=== PATIENT | female | born 1980 | race Caucasian/White ===

== ENCOUNTER → 2018-02-15 08:45 | Outpatient (CLI) | payer OTHER, SELFPAY ==
[2018-02-15 10:20] LABS: Glucose 80 mg/dL (70-100)
[2018-02-22 14:26] LABS: AFP, Serum 34.6 ng/mL; Cigarette Smoker No; Donated Egg NOT GIVEN; Donor Egg Age NOT GIVEN; Estriol, Free 0.95 ng/mL; Inhibin A, Dimeric 127 pg/mL; Maternal Ethnicity NOT GIVEN; Maternal Weight 181 lbs; Number of Fetuses NOT GIVEN; Previous Pregnancy Down Syndro NOT GIVEN; hCG, MoM 0.98; hCG, Serum 24.8 IU/mL
== END ==
PROVIDERS: Visit Provider Specialist
DX: Z36.9 Encounter for antenatal screening, unspecified (principal); Z3A.17 17 weeks gestation of pregnancy
CPT/HCPCS: 36415; 82105; 82677; 82947; 84702; 86336

== ENCOUNTER → 2018-03-09 14:56 | Outpatient (CLI) | payer OTHER, SELFPAY ==
--- NOTE | 2018-03-09 14:58 | DI.US.S_ITS ---
PROCEDURE: US OB >= 14 WEEKS FETUS INDICATIONS: 20 WEEK ANATOMIC SURVEY OUTSIDE/PRIOR DATING DATA: Last menstrual period (LMP): 10/18/17. LMP-based estimated date of delivery (CARLOS): 07/25/18. First dating scan (date and location): 02/15/18. Estimated date of delivery (CARLOS) from first dating scan: 07/25/18. TECHNIQUE: Real-time scanning was performed of the fetus, with image documentation and biometric measurements. COMPARISON: [facility], , OB >= 14 WEEKS FETUS, 02/15/2018, 8:30. FINDINGS: General: A single living intrauterine gestation is present. Presentation: Breech. Placenta: Placental position is anterior, without previa. Lower placental edge 2 cm or less from internal cervical os qualifies as low lying placenta. Amniotic fluid index: 14.2 cm, normal range is 5-24 cm. heart rate: 144 beats per minute. Maternal cervical canal: 4.1 cm long. Normal lower limit is 2.5 cm. biometrics: Biparietal diameter: 4.8 cm 20 weeks 3 days Head circumference: 17.9 cm 20 weeks 2 days Abdominal circumference: 15.1 cm 20 weeks 2 days Femur length: 3.4 cm 20 weeks 4 days Estimated gestational age from initial scan: 20 weeks 2 days Composite gestational age from present scan: 20 weeks 3 days Estimated weight and percentile: 351 g 51st percentile Measurement variability for biometric dating: +/- 7 days from 14 weeks to 15 weeks 6 days gestation, +/- 10 days from 16 weeks to 21 weeks 6 days gestation, +/- 2 weeks from 22 weeks to 27 weeks 6 days gestation, +/- 3 weeks for 28 weeks gestation or later. weight reference: 4500 g or EFW >90/95% is considered macrosomia or large for gestational age. EFW <10% is small for gestational age. EFW 5% or less is considered intra-uterine growth restriction. Anatomic survey: Neuro: Ventricles are non-dilated at less than 10 mm. Cisterna magna is normal at 3-11 mm. Cerebellum is normal in size and morphology. Nuchal skin fold: Normal at less than 6 mm between 14-21 weeks gestational age. Face: Nose and lips, facial profile are normal. Spine: No evidence for spina bifida. Heart: 4-chambered heart is present, with normal ventricular outflow tracts. Diaphragm: Diaphragm is intact. Stomach: Left-sided stomach is present. Kidneys: No hydronephrosis. Normal is less than 5 mm in 2nd trimester, less than 7 mm in 3rd trimester. Cord: 3-vessel cord has orthotopic insertion. Bladder: Normal in size. Extremities: All 4 extremities identified. Miscellaneous: Mild right maternal hydronephrosis. IMPRESSION: 1. Single live intrauterine with ultrasound gestational age of 20 weeks 3 days compared to 20 weeks 2 days on initial ultrasound. Ultrasound CARLOS is unchanged in 07/25/18. 2. Anatomy is within normal limits. Dictated by: Jyoti Valles M.D. on 03/09/2018 at 17:16 Approved by: Jyoti Valles M.D. on 03/09/2018 at 17:18
== END ==
PROVIDERS: Visit Provider Specialist
DX: Z36.89 Encounter for other specified antenatal screening (principal); Z3A.20 20 weeks gestation of pregnancy
CPT/HCPCS: 76811

== ENCOUNTER → 2018-04-15 10:49 | Outpatient (CLI) | payer OTHER, SELFPAY ==
[2018-04-15 11:44] LABS: Hematocrit 34.1 % (36-46); Hemoglobin 11.5 g/dL (12.0-16.0)
== END ==
PROVIDERS: Visit Provider Specialist
DX: Z3A.23 23 weeks gestation of pregnancy (principal)
CPT/HCPCS: 36415; 85014; 85018

== ENCOUNTER 2018-04-19 16:57 | Outpatient (CLI) | payer OTHER, SELFPAY ==
--- NOTE | 2018-04-20 06:48 | PM.OBTRLD ---
Visit Information Visit Information Date of evaluation: 04/19/18 Primary OB Provider: Magan Mares On-call OB Provider: Luz Lomeli Reason for Evaluation: Yes non-stress test non-stress test reason: decreased movement Evaluation Evaluation Baseline heart rate: 145 Variability: Average (6-10) monitor accelerations: Present monitor decelerations: Absent Category of Tracing: I (Appropriate for gestational age ) Diagnosis, Plan/Disposition Final Diagnosis (1) 26 weeks gestation of : Current Visit: No Status: Acute (2) Decreased movement: Current Visit: No Status: Acute Plan/Disposition Plan: Discharge to home Discussed movement at 26 weeks Follow up as scheduled
== END 2018-04-19 17:37 | disposition home or self-care (01) ==
LOC: OB 04-20 15:51
PROVIDERS: Visit Provider Obstetrics & Gynecology
DX: O36.8120 Decreased fetal movements, second trimester, not applicable or unspecified (principal); Z3A.26 26 weeks gestation of pregnancy
CPT/HCPCS: 59025; G0378; G0379

== ENCOUNTER → 2018-06-03 12:02 | Outpatient (CLI) | payer OTHER, SELFPAY | DX: Z23 Encounter for immunization (principal) | CPT/HCPCS: 90471; 90686 ==

== ENCOUNTER 2018-06-10 08:33 | Outpatient (CLI) | payer OTHER, SELFPAY ==
--- NOTE | 2018-06-10 09:13 | PM.OBTRLD ---
Visit Information Visit Information Date of evaluation: 06/10/18 Primary OB Provider: Ivone Tello Reason for Evaluation: Yes non-stress test non-stress test reason: diabetes Objective Labs Result Diagrams: 06/10/18 08:36 Evaluation Evaluation Baseline heart rate: 140 Variability: Moderate (11-25) monitor accelerations: Present monitor decelerations: Absent Category of Tracing: I Diagnosis, Plan/Disposition Final Diagnosis (1) Gestational diabetes: Current Visit: Yes Status: Acute (2) 33 weeks gestation of : Current Visit: Yes Status: Acute Plan/Disposition Plan: Reactive nonstress test. Patient to get weekly nonstress test for her gestational diabetes controlled with oral medication. OB Disposition: home
[2018-06-10 09:35] LABS: Hemoglobin A1C% w Est Avg Glu 5.3 % (4.0-6.0)
[2018-06-10 09:46] LABS: Glucose 125 mg/dL (70-100)
== END 2018-06-10 09:18 | disposition home or self-care (01) ==
LOC: LAB 08:34 → LABOR 09:18
PROVIDERS: Visit Provider Specialist
DX: O24.419 Gestational diabetes mellitus in pregnancy, unspecified control (principal); Z3A.33 33 weeks gestation of pregnancy
CPT/HCPCS: 36415; 59025; 82947; 83036; G0378

== ENCOUNTER 2018-06-16 10:55 | Outpatient (CLI) | payer OTHER, SELFPAY ==
--- NOTE | 2018-06-16 11:34 | P.TNLD_ITS ---
Visit Information Visit Information Date of evaluation: 06/16/18 Primary OB Provider: Ivone Tello Reason for Evaluation: Yes non-stress test non-stress test reason: diabetes Evaluation Evaluation Baseline heart rate: 125 Variability: Moderate (11-25) monitor accelerations: Present monitor decelerations: Absent Contraction Frequency (minutes): 0 Diagnosis, Plan/Disposition Final Diagnosis (1) Gestational diabetes: Current Visit: No Status: Acute (2) 34 weeks gestation of : Current Visit: No Status: Acute Plan/Disposition Plan: Reactive nonstress test, patient seen in the office today. Weekly follow- up.
== END 2018-06-16 11:40 | disposition home or self-care (01) ==
LOC: LABOR 11:04 → OB 06-17 16:53
PROVIDERS: Visit Provider Specialist
DX: O24.419 Gestational diabetes mellitus in pregnancy, unspecified control (principal); Z3A.34 34 weeks gestation of pregnancy
CPT/HCPCS: 59025; G0378; G0379

== ENCOUNTER 2018-06-21 14:57 | Outpatient (CLI) | payer OTHER, SELFPAY ==
--- NOTE | 2018-06-21 16:18 | PM.OBTRLD ---
Visit Information Visit Information Date of evaluation: 06/21/18 Reason for Evaluation: Yes non-stress test non-stress test reason: diabetes Vital Signs Vital Signs: Blood pressure 114/68, pulse of 83 Evaluation Evaluation Baseline heart rate: 130 Variability: Moderate (11-25) monitor accelerations: Present monitor decelerations: Absent Diagnosis, Plan/Disposition Final Diagnosis (1) Gestational diabetes: Current Visit: No Status: Acute (2) 35 weeks gestation of : Current Visit: Yes Status: Acute Plan/Disposition Plan: Reactive nonstress test. Follow-up in 1 week. OB Disposition: home
== END 2018-06-21 15:53 | disposition home or self-care (01) ==
LOC: LABOR 15:26 → OB 06-22 10:22
PROVIDERS: Visit Provider Specialist
DX: Z34.83 Encounter for supervision of other normal pregnancy, third trimester (principal); Z3A.35 35 weeks gestation of pregnancy
CPT/HCPCS: 59025; G0378; G0379

== ENCOUNTER → 2018-06-30 09:24 | Outpatient (CLI) | payer OTHER, SELFPAY ==
[2018-07-01 16:21] LABS: Strep Grp B PCR NEG for Grp B Strep
== END ==
PROVIDERS: Visit Provider Specialist
DX: Z3A.35 35 weeks gestation of pregnancy (principal)
CPT/HCPCS: 87653

== ENCOUNTER → 2018-06-30 09:27 | Outpatient (CLI) | payer OTHER, SELFPAY ==
--- NOTE | 2018-06-30 10:53 | PM.OBTRLD ---
Visit Information Visit Information Date of evaluation: 06/30/18 Primary OB Provider: Ivone Tello Reason for Evaluation: Yes non-stress test non-stress test reason: diabetes Exam Vital Signs (past 8 hours): Blood pressure 116/71, pulse of 80 Evaluation Evaluation Baseline heart rate: 140 Variability: Moderate (11-25) monitor accelerations: Present monitor decelerations: Absent Category of Tracing: I Diagnosis, Plan/Disposition Final Diagnosis (1) 36 weeks gestation of : Current Visit: Yes Status: Acute (2) Gestational diabetes mellitus (GDM): Current Visit: Yes Status: Acute Plan/Disposition Plan: Continue weekly OB visits and NSTs
== END | disposition home or self-care (01) ==
LOC: LABOR 09:47 → OB 15:42
PROVIDERS: Visit Provider Specialist
DX: Z34.83 Encounter for supervision of other normal pregnancy, third trimester (principal); Z3A.36 36 weeks gestation of pregnancy
CPT/HCPCS: 59025; 87653; G0378; G0379

== ENCOUNTER → 2018-07-06 15:39 | Outpatient (CLI) | payer OTHER, SELFPAY | END | disposition home or self-care (01) | LOC: LABOR 15:55 → OB 07-08 09:52 | PROVIDERS: Visit Provider Obstetrics & Gynecology | DX: Z3A.37 37 weeks gestation of pregnancy (principal); Z34.83 Encounter for supervision of other normal pregnancy, third trimester | CPT/HCPCS: 59025; G0378; G0379 ==

== ENCOUNTER 2018-07-11 22:00 | Inpatient (IN) | payer OTHER, SELFPAY ==
--- NOTE | 2018-07-11 23:11 | P.HPOB_ITS ---
OB HPI Date/Time Date of admission: 07/11/18 Date Patient Seen: 07/11/18 Time Patient Seen: 23:00 History of Present Condition Chief complaint: eval of labor : 2 Para: 1 Estimated Date of Delivery: 07/26/18 Estimated Gestational Age (weeks): 37w6d Narrative: Amita Vargas is a 37 year old at 37 weeks and 6 days presenting with SROM. She was scheduled for repeat on 07/19/18. Patient has a history of PCOS for which she was on metformin before and during her . Due to history of gestational diabetes in her first , blood sugars were monitored throughout this and all normal. Past surgical history includes section, tonsillectomy and wisdom teeth extraction. Indications Operative indications ( section): previous uterine surgery History of Present care: good care, number of visits (15) and pounds weight gain (38) Dating criteria: based on 1st trimester US only Ultrasounds: normal mid trimester US Obstetrical complications: gestational diabetes and other (bicornuate uterues) Narrative: PCOS on metformin Preadmission Labs Blood type: O (+) positive -: Antibody screen: negative, GBS status: negative, HBsAG: negative, HIV: negative and RPR/VDLR: negative -: Chlamydia screen: not detected and Gonorrhea screen: not detected -: Rubella: immune HCT: 39.1 HCAB: negative PAP: Normal Quad screen: Normal Prior (ies) History: 2016 for breech, term female Evaluation Evaluation Baseline heart rate: 130 Variability: Moderate (11-25) monitor accelerations: Present monitor decelerations: Absent Category of Tracing: I Non-invasive Membranes Rupture Test: positive Meds Home Medications Medication Instructions Recorded Confirmed Type oxymwcpbjv-sydoqegaxzvpb-oznu 1 tab PO Q4HP PRN #20 tab-cap 02/06/17 Rx blood sugar diagnostic strips #150 each 02/15/18 Rx omeprazole 20 mg capsule,delayed 20 mg PO DAILY #30 cap 04/15/18 04/15/18 Rx release Double Electric Breast Pump #1 ea 06/21/18 06/21/18 Rx metformin ER 500 mg 1,000 mg PO BID #120 tab 07/06/18 07/06/18 Rx tablet,extended release 24 hr Allergies Allergy/AdvReac Type Severity Reaction Status Date / Time oxycodone [OXYCODONE] Allergy Severe violent Unverified 12/09/17 12:34 vomiting azithromycin [AZITHROMYCIN] Allergy Intermediate stomach Unverified 12/09/17 12: 34 cramps/nausea Review of Systems Review of Systems All systems reviewed & are unremarkable except as noted in HPI and below Exam Const General: cooperative and healthy appearing HENNM Head: normal to inspection Ears: hearing grossly normal bilaterally Nose: external nose normal Mouth: oral mucosae normal Teeth and gingiva: dentition normal Eyes General: appearance normal, both eyes and all related structures Neck Neck: normal visual inspection Resp Effort & Inspection: normal respiratory effort Auscultation: clear to auscultation bilaterally Cardio Rate: regular rate Rhythm: regular rhythm Heart Sounds: no murmurs Presentation: vertex Estimated Weight (lbs): 7 Amniotic Fluid: clear Neuro General: alert, awake and oriented x3 Extrem General: normal to inspection and no pedal edema Objective Labs Result Diagrams: 07/11/18 23:35 Assessment and Plan (1) 37 weeks gestation of : Current visit: Yes Status: Acute (2) Gestational diabetes mellitus (GDM): Current visit: No Status: Acute (3) H/O section: Current visit: Yes Status: Acute 37 year old at 37 weeks and 6 days with history of prior section here with SROM. Will proceed with repeat with bilateral tubal ligation. Consent signed.
[2018-07-11 23:54] LABS: Add Manual Diff / Slide Review NO; Basophils Percent Auto 0.4 % (0-2); Eosinophils Percent Auto 0.8 % (2-4); Hematocrit 30.8 % (36-46); Hemoglobin 10.2 g/dL (12.0-16.0); Lymphocytes Percent Auto 10.7 % (25-40); Mean Corpuscular HGB Conc 33.1 % (30-36); Mean Corpuscular Hemoglobin 27.8 PG (26-34); Mean Corpuscular Volume 84.1 fL (80-100); Monocytes Percent Auto 7.3 % (3-14); Neutrophils Absolute Auto 7900 /uL (3000-5900); Neutrophils Percent Auto 80.8 % (50-75); Platelet Count 238 X10^3/uL (150-400); Red Blood Cell Count 3.67 X10^6/uL (4.0-5.2); Red Cell Distribution Width 14.2 % (11.6-14.8); White Blood Cell Count 9.7 X10^3/uL (4.5-11.0)
[2018-07-11] MEDS: CEFAZOLIN 2 GM/100 ML FROZ.PIGGY IV (23:59)
--- NOTE | 2018-07-12 | PATH_ITS ---
[facility] Accession Number: [id number] . 01 Material submitted: . PART A: SEGMENT RIGHT FALLOPIAN TUBE PART B: SEGMENT LEFT FALLOPIAN TUBE . 02 Diagnosis: A-B. Segments of Right and Left Fallopian Tubes (Sterilization Procedure): No significant pathologic change. MRV/07/14/2018 . 02 Electronically signed: . Hubert Mota MD, Pathologist NPI- [id number] . 01 Gross description: . Received two formalin-filled containers, both labeled with the patient's name: . A. In a container labeled segment right fallopian tube, the specimen consists of a 0.4 cm in diameter by 0.7 cm in length, cylindrical shaped portion of tissue. The specimen is inked blue, bisected, and totally submitted in cassette A. B. In a container labeled segment left fallopian tube, the specimen consists of a 0.4 cm in diameter by 0.7 cm in length, cylindrical shaped portion of tissue. The specimen is inked blue, bisected, and entirely submitted in cassette B. ([id number]) /FRR . 02 Microscopic: . Slides reviewed microscopic support the final diagnosis. . 02 Pathologist provided ICD-10: Z30.2 . 02 CPT . 337745, [id number] Specimen Comment: A duplicate report has been generated due to demographic updates. Performed at: 01 [facility] [address] [facility], [place], [place] [id number] MD Ashutosh James MD Phone: [phone] Performed at: 02 [facility] [address] [place], [place] [id number] MD Radha Valencia MD Phone: [phone]
--- NOTE | 2018-07-12 00:27 | SUR.OPER ---
Supine on Padded OR bed, head on pillow, safety belt at thigh, arms secured on padded arm boards at <90 degrees abduction. Bump under right buttock. Legs uncrossed with pillow under knees, gel pad to heels, tape over blanket to lower legs.
[2018-07-12] MEDS: ACETAMINOPHEN IV 1,000 MG/100 ML VIAL 400 MG IV (00:40)
--- NOTE | 2018-07-12 00:50 | SUR.OPER ---
VIABLE FEMALE INFANT DELIVERED AT 0030. CORD BLOOD AND PLACENTA TO OB WITH RN.
[2018-07-12] MEDS: LACTATED RINGERS 1,000 ML 42 ML IV (01:10)
[2018-07-12 01:21] VITALS: BP 121/48; PULSE 71; RESP 18; TEMP 36.4; O2SAT 97
[2018-07-12] MEDS: fentaNYL 100 MCG/2 ML INJ 25 MCG IV ×2 (01:24→01:31)
[2018-07-12 01:26] VITALS: BP 122/48; PULSE 70; RESP 18; O2SAT 98
--- NOTE | 2018-07-12 01:28 | PM.OP.1 ---
Operative Date/Time/Diagnoses Date of procedure: 07/12/18 Pre-op diagnosis: 38 weeks of History of section Spontaneous rupture of membranes Post-op diagnosis: same Procedure & Clinicians Procedure: Repeat low transverse section with bilateral tubal ligation Same procedure as scheduled: Yes Indications: Prior 38 weeks of Spontaneous rupture of membranes Surgeon: Rocío Leo [employer] Operations Specialist: Magan Mares Anesthesia Type: Spinal Operative Notes Findings: Live female Normal uterus, tubes and ovaries Closure Type: primary Specimen(s): other (bilateral fallopian tube sections) Implants & Drains: Applied: catheter Estimated Blood Loss (mL): 400 Procedure in detail: The patient was taken to the operating room where she was placed in the seated position. Spinal anesthesia was administered. She was then placed in the dorsal supine position with a leftward tilt. She was prepped and draped in the usual sterile fashion. A timeout was performed. After spinal analgesia was found to be adequate, a Pfannenstiel skin incision was made 2 fingerbreadths above the pubic symphysis and carried through to the underlying layer fascia. The fascia was nicked in the midline and the incision extended bilaterally with Ramirez scissors. The superior aspect of the fascial incision was grasped with a Aurora clamps, elevated, and the underlying rectus muscles dissected off sharply and bluntly. Attention was then turned to the inferior aspect of this incision which in a similar fashion was grasped with a Aurora clamps, elevated, and the underlying rectus muscles dissected off sharply and bluntly. The rectus muscles were in the midline. The peritoneum was identified, grasped between 2 hemostats, and entered sharply with the Metzenbaum scissors. This incision was extended superiorly and inferiorly with good visualization of the bladder. The bladder blade was inserted. The vesicouterine peritoneum was identified, grasped with the pickup, and entered sharply with the Metzenbaum scissors. This incision was extended bilaterally, and the bladder flap was created digitally. The bladder blade was reinserted. The lower uterine segment was incised in a transverse fashion with the scalpel. Upon entering the amniotic sac there was a small amount clear amniotic fluid. The infant's head was delivered. The remainder of the body delivered without difficulty. The cord was double clamped and cut. The was handed off to waiting RN and RT. The placenta was delivered manually. The uterus was cleared of all clots and debris. The uterine incision was repaired with #1 chromic in a running interlocking fashion and a second layer the same suture was used for an imbricating layer. Hemostasis was achieved. The tubes and ovaries were examined and were found to be normal. Dr. Mares performed a bilateral [place] tubal ligation. The gutters were cleared of all clots and debris. The parietal peritoneum was closed using 2-0 Chromic in a running fashion. The fascia was reapproximated using #1 Vicryl in a running fashion. Subcutaneous layer was copiously irrigated with warm normal saline. 5 simple interrupted sutures of 3-0 Vicryl were placed to reapproximate the subcutaneous layer. The skin was closed with 4-0 undyed Vicryl in a subcuticular fashion. Steri-Strips were placed. An Aquacel dressing was placed. The uterus was expressed of a small amount of old blood. Sponge, lap, and instrument counts were correct. The patient tolerated the procedure well, and was taken to PACU in stable condition. Complications: none Condition: stable Disposition: PACU
[2018-07-12 01:31] VITALS: BP 118/51; PULSE 67; RESP 18; O2SAT 97
[2018-07-12 01:36] VITALS: BP 123/55; PULSE 69; RESP 16; TEMP 36.4; O2SAT 98
[2018-07-12 02:40] VITALS: BP 127/68
[2018-07-12] MEDS: LACTATED RINGERS 1,000 ML 100 ML IV (03:00)
[2018-07-12] MEDS: KETOROLAC 30 MG/ML VIAL IV ×3 (06:48→18:35)
[2018-07-12] MEDS: METFORMIN XR 500 MG TABLET 1000 MG PO ×2 (09:12→21:02)
[2018-07-12] MEDS: DOCUSATE 250 MG CAPSULE PO (09:13)
[2018-07-12] MEDS: PANTOPRAZOLE 20 MG TABLET PO (09:13)
--- NOTE | 2018-07-12 15:41 | P.PNOB_ITS ---
Subjective - OB Interval history: Patient has not yet ambulated or had the Cunningham catheter removed. Patient comments: no complaints, pain well controlled, tolerating diet and flatus present baby status: doing well and nursing well Date Patient Seen: 07/12/18 Time Patient Seen: 15:00 Exam Vital Signs (past 8 hours): Oxygen Delivery Method Room Air Temperature 98.3? blood pressure 103/60 heart rate 68 Narrative Exam Narrative: General: Awake and alert, no acute distress. HEENT: NCAT, EOMI, moist oral mucosa CV: Regular rate and rhythm, no murmurs, rubs or gallops Lungs: CTAB, no wheezes, rales, or rhonchi Abdomen: Soft, nontender; bowel tones active; uterus firm 1 cm below umbilicus Extremities: Warm, trace edema bilaterally, 2+ pedal pulses bilaterally Objective Labs Result Diagrams: 07/11/18 23:35 Labs: Laboratory Results - last 24 hr 07/11/18 07/11/18 23:35 23:35 WBC 9.7 RBC 3.67 L Hgb 10.2 L Hct 30.8 L MCV 84.1 MCH 27.8 MCHC 33.1 RDW 14.2 Plt Count 238 Neut % (Auto) 80.8 H Lymph % (Auto) 10.7 L [place] % (Auto) 7.3 Eos % (Auto) 0.8 L Baso % (Auto) 0.4 Neut # (Auto) 7900 H Blood Type O Positive Antibody Screen Negative Assessment & Plan (1) 37 weeks gestation of : Status: Acute Current Visit: Yes (2) Gestational diabetes mellitus (GDM): Status: Acute Current Visit: No (3) H/O section: Status: Acute Current Visit: Yes (4) Status post section: Status: Acute Current Visit: Yes Plan day: 0 plan OB: routine care and routine postop care Time Spent With Patient Total time spent is greater than 50% in coordination of care (as documented) at patient's floor/unit and/or counseling patient: less than 15 minutes
--- NOTE | 2018-07-12 18:05 | P.HPPD_ITS ---
History History The patient was delivered by repeat section at 12:30 a.m. or in the operating room at [facility]. Rupture of membranes was spontaneous with duration of rupture membranes 3 hr 30 min. Clear fluid was found. was 8 at 1 min with 2 off for color and 9 at 5 min with 1 off for color. No resuscitation was needed. The has had stable vital signs and been afebrile. They are nursing reasonably well. No parental concerns. Mom says went well. Mom denies use of alcohol, tobacco, and illicit drugs during . Mom is a 37-year-old 2 para 1 with estimated date of confinement of July 26, 2018. Maternal laboratory information includes: Blood type: O positive, antibody screen negative Syphilis serology: Negative Rubella: Immune Group B strep screen: Negative Hepatitis-B surface antigen: Negative Gonorrhea: Negative HIV: Negative Exam - Pediatric Vital Signs Temp Pulse Resp BP Pulse Ox 97.6 F 71 18 121/48 L 97 07/12/18 01:21 07/12/18 01:21 07/12/18 01:21 07/12/18 01:21 07/12/18 01:21 weight: 6 lb 12 oz which is 3062 g. Length: 19.2 in which is 48.8 cm Head circumference: 13.25 in which is 33.7 cm Vital signs: Temperature: 98.6?. Heart rate: 124. Respiratory rate: 32. General: Patient is calm and normally responsive. Head: Normocephalic. Soft anterior fontanel. Eyes: Normal red reflex x2 Ears: Normal externally with patent canals Mouth and throat: No posterior pharyngeal defects. No obvious ankyloglossia. Nose: Patent with no discharge. Neck: No unusual masses Chest wall: Symmetrical. No retractions. Heart: Regular rate and rhythm with no murmur. Normal S2 split. Plus two femoral pulses. Lungs: Clear with normal breath sounds new Abdomen: No masses or tenderness. Bowel sounds are present. Hips: Normal range of motion bilaterally. External genitalia: Normal female Anus: Patent Back: No abnormalities noted. Hands and feet: Grossly normal. Skin: Vandiver with normal turgor. No unusual rashes or skin lesions. Objective Labs Result Diagrams: 07/11/18 23:35 Labs: Laboratory Results - last 24 hr 07/11/18 07/11/18 23:35 23:35 WBC 9.7 RBC 3.67 L Hgb 10.2 L Hct 30.8 L MCV 84.1 MCH 27.8 MCHC 33.1 RDW 14.2 Plt Count 238 Neut % (Auto) 80.8 H Lymph % (Auto) 10.[address] [place] % (Auto) 7.3 Eos % (Auto) 0.8 L Baso % (Auto) 0.4 Neut # (Auto) 7900 H Blood Type O Positive Antibody Screen Negative
[2018-07-12] MEDS: HYDROMORPHONE 2 MG TABLET PO ×2 (19:21→23:07)
[2018-07-13] MEDS: IBUPROFEN 600 MG TABLET PO ×4 (00:46→18:51)
[2018-07-13] MEDS: HYDROMORPHONE 2 MG TABLET PO ×5 (03:07→23:17)
[2018-07-13] MEDS: METFORMIN XR 500 MG TABLET 1000 MG PO ×2 (08:25→20:09)
[2018-07-13] MEDS: DOCUSATE 250 MG CAPSULE PO (08:26)
[2018-07-13] MEDS: PANTOPRAZOLE 20 MG TABLET PO (08:26)
[2018-07-13 08:38] LABS: Hematocrit 28.2 % (36-46); Hemoglobin 9.5 g/dL (12.0-16.0)
--- NOTE | 2018-07-13 11:49 | P.PNOB_ITS ---
Subjective - OB Interval history: Patient comments: pain well controlled, incisional pain, tolerating diet and flatus present [place] baby status: doing well and nursing well feeding status: exclusively breast feeding Date Patient Seen: 07/13/18 Time Patient Seen: 08:00 Exam Vital Signs (past 8 hours): Oxygen Delivery Method Room Air temperature 98.4? blood pressure 119/69 heart rate 80 respirations 16 Narrative Exam Narrative: General: Awake and alert, no acute distress. HEENT: NCAT, EOMI, moist oral mucosa CV: Regular rate and rhythm, no murmurs, rubs or gallops Lungs: CTAB, no wheezes, rales, or rhonchi Abdomen: Soft, nontender; bowel tones active; uterus firm 1 cm below umbilicus Extremities: Warm, no edema, 2+ pedal pulses bilaterally Objective Labs Result Diagrams: 07/13/18 07:55 Labs: Laboratory Results - last 24 hr 07/13/18 07:55 Hgb 9.5 L Hct 28.2 L Assessment & Plan (1) 37 weeks gestation of : Status: Acute Current Visit: Yes (2) Gestational diabetes mellitus (GDM): Status: Acute Current Visit: No (3) H/O section: Status: Acute Current Visit: Yes (4) Status post section: Status: Acute Current Visit: Yes Plan day: 1 plan OB: routine postop care Comments: Doing well. Anticipate discharge home tomorrow. Time Spent With Patient Total time spent is greater than 50% in coordination of care (as documented) at patient's floor/unit and/or counseling patient: less than 15 minutes
[2018-07-14] MEDS: IBUPROFEN 600 MG TABLET PO ×2 (02:10→08:03)
[2018-07-14] MEDS: HYDROMORPHONE 2 MG TABLET PO (06:24)
[2018-07-14] MEDS: METFORMIN XR 500 MG TABLET 1000 MG PO (08:03)
[2018-07-14] MEDS: DOCUSATE 250 MG CAPSULE PO (08:04)
--- NOTE | 2018-07-14 08:21 | P.DS_ITS ---
Discharge Providers Date of admission: 07/11/18 22:00 Consults: 07/12/18 08:22 Consult to Dispatcher Service Chief Routine Comment: Discharge provider: Rocío Leo DO Discharge Date: 07/14/18 Summary Date Patient Seen: 07/14/18 Time Patient Seen: 08:00 Hospital Course: Patient is a 37-year-old G2 now P2 status post repeat section. Patient presented the night of 07/11/18 with SROM so was taken to in the middle of the night. Patient also underwent bilateral tubal ligation at the time of the . Surgery was uncomplicated with delivery of a vigorous female . course also unremarkable. Pain was well controlled with Dilaudid due to an oxycodone allergy. going well. Patient ambulating, eating and voiding without difficulty. Patient requested Tylenol with codeine on discharge rather than Dilaudid as this is what she used with her first . Patient will follow up in clinic in 1 week for a wound check. Counseled to call for fevers, severe pain or bleeding through more than a pad an hour. Exam Temperature 98.7? blood pressure 107/68 heart rate 72 respirations 16 General: Awake and alert, no acute distress. HEENT: NCAT, EOMI, moist oral mucosa CV: Regular rate and rhythm, no murmurs, rubs or gallops Lungs: CTAB, no wheezes, rales, or rhonchi Abdomen: Aquacel dressing in place with minimal drainage. Abdomen is doft, nontender; bowel tones active; uterus firm 1 cm below umbilicus Extremities: Warm, trace edema, 2+ pedal pulses bilaterally Peripartum Data Infant Delivery Method: Section complications: none Discharge Diagnosis (1) 37 weeks gestation of : Status: Acute (2) Gestational diabetes mellitus (GDM): Status: Acute (3) H/O section: Status: Acute (4) Status post section: Status: Acute Status at Discharge Functional status at discharge: independent ambulation Overall status at discharge: patient is progressing back to baseline Time Spent with Patient Total time spent providing and/or coordinating discharge services: Less than 30 minutes Objective Labs Result Diagrams: 07/13/18 07:55 Labs: Laboratory Results - last 24 hr 07/13/18 07:55 Hgb 9.5 L Hct 28.2 L Discharge Plan Discharge Plan Patient Disposition: Home Discharge Med Rec/Prescriptions Prescriptions: New acetaminophen-codeine 300-30 mg Tablet 1 tab PO Q4HR PRN (Reason: Moderate Pain) Qty: 20 RF: 0 ibuprofen 600 mg Tablet 600 mg PO Q6HR PRN (Reason: As Needed For Fever/Mild Pain) Qty: 30 RF: 0 Continue metformin [Glucophage XR] 500 mg tablet extended release 24 hr 1,000 mg PO BID Qty: 120 RF: 3 omeprazole 20 mg capsule,delayed release(DR/EC) 20 mg PO DAILY Qty: 30 RF: 2 No Action blood sugar diagnostic [FreeStyle Lite Strips] strip .ROUTE .MEDSUPPLY Qty: 150 RF: 12 Double Electric Breast Pump Qty: 1 RF: 0 Follow up/Referrals: Rocío Leo DO [Physician] - 1 Week (Thursday 07/19 for wound check @) Visit Report/Discharge Packet Stand Alone Forms: Discharge: Care Visit Report Forms: Stroke Signs & Symptoms Discharge Data Attending Provider: Rocío Leo Admit Date/Time: 07/11/18 22:00 Discharges patient from system. Discharge Date/Time: 07/14/18 11:45
[2018-07-14] MEDS: CODEINE/ACETAMINOPHEN 30/300 TABLET 1 TAB PO (09:08)
[2018-07-14 09:27] VITALS: BP 119/72; PULSE 77; RESP 16; TEMP 37
== END 2018-07-14 11:45 | disposition home or self-care (01) | DRG 785 ==
PROVIDERS: Admitting Provider Family Medicine; Visit Provider Family Medicine
PROC: 10D00Z1 Extraction of Products of Conception, Low, Open Approach (ICD-10-PCS; CPT 59514; principal; 2018-07-12 00:25)
DX: O34.03 Maternal care for unspecified congenital malformation of uterus, third trimester (principal); Q51.3 Bicornate uterus; Z3A.37 37 weeks gestation of pregnancy; Z37.0 Single live birth; O34.219 Maternal care for unspecified type scar from previous cesarean delivery; Z30.2 Encounter for sterilization
CPT/HCPCS: 36415; 59000; 59050; 59514; 59515; 85014; 85018; 85025; 86850; 86900; 86901; 88302; G0379; J0131; J0171; J0690; J1885; J2274; J2405; J2590; J2765; J3010

== ENCOUNTER → 2018-07-21 14:01 | Outpatient (CLI) | payer OTHER, SELFPAY ==
[2018-07-21 15:04] LABS: Add Manual Diff / Slide Review NO; Basophils Percent Auto 0.7 % (0-2); Eosinophils Percent Auto 2.2 % (2-4); Hematocrit 30.3 % (36-46); Lymphocytes Percent Auto 11.9 % (25-40); Mean Corpuscular HGB Conc 32.9 % (30-36); Mean Corpuscular Hemoglobin 27.5 PG (26-34); Mean Corpuscular Volume 83.7 fL (80-100); Monocytes Percent Auto 6.6 % (3-14); Neutrophils Absolute Auto 6300 /uL (3000-5900); Neutrophils Percent Auto 78.6 % (50-75); Platelet Count 395 X10^3/uL (150-400); Red Blood Cell Count 3.62 X10^6/uL (4.0-5.2); Red Cell Distribution Width 15.1 % (11.6-14.8); White Blood Cell Count 8.1 X10^3/uL (4.5-11.0)
[2018-07-21 15:11] LABS: BUN Creatinine Ratio 25.7 (6-22); Blood Urea Nitrogen 18 mg/dL (7-17); Calcium 9.2 mg/dL (8.4-10.2); Carbon Dioxide 27 mmol/L (22-32); Chloride 101 mmol/L (98-107); Estimated Glomerular Filt Rate > 60.0 mL/min (>60); Glucose 79 mg/dL (70-100); HEMOLYSIS < 15 (0-50); Potassium 4.8 mmol/L (3.4-5.1); Sodium 139 mmol/L (137-145)
[2018-07-21 15:36] LABS: B Type Natriuretic Peptide 77.1 (<100)
== END ==
PROVIDERS: Visit Provider Family Medicine
DX: Z98.891 History of uterine scar from previous surgery (principal)
CPT/HCPCS: 36415; 80048; 83880; 85025

== ENCOUNTER → 2018-11-13 11:28 | Outpatient (CLI) | payer OTHER, SELFPAY ==
[2018-11-13 12:25] LABS: Influenza A and B by PCR Rapid Negative (Negative)
== END ==
PROVIDERS: Visit Provider Physician Assistant
DX: R68.89 Other general symptoms and signs (principal)
CPT/HCPCS: 87400

== ENCOUNTER 2018-11-15 06:17 | Emergency (ER) | payer OTHER, SELFPAY ==
[2018-11-15 06:27] VITALS: BP 119/71; PULSE 76; RESP 18; TEMP 36.5; O2SAT 100; BMI 30.4
--- NOTE | 2018-11-15 06:30 | ED.URI ---
HPI - URI/Sore Throat General Chief Complaint: Upper Respiratory Symptoms Stated Complaint: coughing sore throat short of breath Time Seen by Provider: 11/15/18 06:30 Source: patient Mode of arrival: ambulatory Limitations: no limitations History of Present Illness HPI Narrative: Patient is a 38-year-old female presents with cough sore throat shortness of breath. 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 She was tested for influenza 2 days ago was negative. She still overall is feels terrible she has a sore throat and coughing up yellow stuff. Complaint: fever, cough and sore throat Related Data Previous Rx's Medication Instructions Recorded blood sugar diagnostic strips #150 each 02/15/18 ibuprofen 600 mg PO Q6HR PRN #30 tab 07/14/18 Double Electric Breast Pump #1 ea 09/02/18 metformin ER 500 mg 500 mg PO BID #60 tab 11/03/18 tablet,extended release 24 hr albuterol sulfate 1 puff INHALATION Q4-6H PRN #8 gram 11/15/18 Allergies Allergy/AdvReac Type Severity Reaction Status Date / Time oxycodone [OXYCODONE] Allergy Severe violent Verified 11/13/18 11:26 vomiting shellfish derived Allergy Severe Swelling Verified 11/13/18 11:26 of Lip/Tongue/Throat azithromycin [AZITHROMYCIN] Allergy Intermediate stomach Verified 11/13/18 11:26 cramps/nausea latex Allergy Intermediate Hives Verified 11/13/18 11:26 Review of Systems Review of Systems ROS Unobtainable: All systems reviewed & are unremarkable except as noted in HPI and below Constitutional Reports chills, Reports fatigue and Reports fever(s) Eyes Denies change in vision, Denies eye discharge, Denies irritation and Denies loss of vision ENT Ears, Nose, Mouth, and Throat: Reports as per HPI Cardiovascular Denies chest pain, Denies irregular heart rhythm, Denies lightheadedness, Denies palpitations and Denies orthopnea Respiratory Reports chest congestion, Reports cough and Reports excessive phlegm production Gastrointestinal Gastrointestinal: Denies abdominal pain, Denies change in bowel habits, Denies diarrhea, Denies nausea and Denies vomiting Genitourinary Denies hematuria, Denies flank pain, Denies urinary incontinence and Denies urinary urgency Musculoskeletal Denies back pain, Denies muscle weakness, Denies numbness and Denies tingling Integumentary/Breasts Denies pruritus, Denies erythema, Denies rash and Denies wounds Neurologic Denies loss of vision, Denies numbness and Denies tingling Endocrine Reports fatigue and Denies palpitations PFSH Medical History Gestational diabetes (Acute) Surgical History H/O section (Resolved) Social History Smoking Status: Former smoker Social History Smoking Status: Former smoker Exam Initial Vital Signs Initial Vital Signs: Vital Signs Temperature 97.7 F 11/15/18 06:27 Pulse Rate 76 11/15/18 06:27 Respiratory Rate 18 11/15/18 06:27 Blood Pressure 119/71 11/15/18 06:27 Pulse Oximetry 100 11/15/18 06:27 GENERAL: Well-appearing, well-nourished and in no acute distress. HEENT: Head atraumatic,EOMI, pupils reactive, face symmetric, moist mucous membranes PHARYNX: No erythema, no tonsillar exudate, no cervical lymphadenopathy CARDIOVASCULAR: Regular rate and rhythm without murmurs, rubs or gallops. RESPIRATORY: Breath sounds equal bilaterally, no wheezes rales or rhonchi. ABDOMEN: Soft, nontender. Normoactive bowel sounds all 4 quadrants. No guarding or rebound. EXTREMITIES: Normal range of motion, no clubbing or edema. Neurovascularly intact NEUROLOGICAL: Alert and oriented x4.Normal gait and speech. SKIN: Warm, dry, no laceration, no petechiae, no rashes or lesions. Course Orders Ordered: ED Orders 11/15/18 06:34 XR chest 2V Stat Influenza A and B by PCR Rapid Stat Vital Signs - 8 hr 11/15/18 06:27 Temperature 97.7 F Pulse Rate 76 Respiratory Rate 18 Blood Pressure 119/71 Pulse Oximetry 100 MDM - URI/Sore Throat Lab Data Attestation: I reviewed the patient's lab results. Lab Results 11/15/18 Range/Units 06:34 Influenza A & B (PCR) Negative (Negative) Imaging Data Chest x-ray: Attestation: I personally reviewed and interpreted this imaging study as follows: My impression: NO ACUTE CARDIOPULMONARY MDM Narrative Medical decision making narrative: Patient is afebrile appears nontoxic influenza negative chest x-ray negative. Likely upper respiratory infection Discharge Plan Departure Patient Disposition: Home Clinical Impression: Upper respiratory infection Qualifiers: URI type: unspecified URI Qualified Code(s): J06.9 - Acute upper respiratory infection, unspecified Instructions: DI for Viral Upper Respiratory Infection -- Adult Activity Restrictions/Additional Instructions: *You have been diagnosed with upper respiratory infection *What to do: At this time no indication for antibiotics influenza is negative x-ray clear *Continue to take medications as directed Albuterol 1-2 puffs every 4 hr if needed for coughing or shortness of breath *Follow up with your primary care provider in 2-3 days *Return to ER if you should have increasing shortness of breath, cough or any new, worsening or concerning symptoms Prescriptions: New albuterol sulfate 90 mcg/actuation HFA aerosol inhaler 1 puff INHALATION Q4-6H PRN (Reason: shortness of breath or wheezing) Qty: 8 RF: 0 No Action blood sugar diagnostic [FreeStyle Lite Strips] strip .ROUTE .MEDSUPPLY Qty: 150 RF: 12 Double Electric Breast Pump Qty: 1 RF: 0 metformin [Glucophage XR] 500 mg tablet extended release 24 hr 500 mg PO BID Qty: 60 RF: 5 ibuprofen 600 mg Tablet 600 mg PO Q6HR PRN (Reason: As Needed For Fever/Mild Pain) Qty: 30 RF: 0 Referrals: Rocío Leo DO [Physician] - Stand Alone Forms: Work Release Note, Work/School Release
--- NOTE | 2018-11-15 06:34 | DI.RAD.S_ITS ---
PROCEDURE: XR CHEST 2V INDICATIONS: cough short of breath TECHNIQUE: 2 views of the chest were acquired. COMPARISON: None. FINDINGS: Surgical changes and devices: None. Lungs and pleura: Lungs are clear. No pleural effusions or pneumothorax. Mediastinum: Mediastinal contours are normal. Heart size is normal. Bones and chest wall: No suspicious bony abnormalities. Soft tissues appear unremarkable. IMPRESSION: No acute cardiopulmonary disease. Dictated by: No Wood M.D. on 11/15/2018 at 8:15 Approved by: No Wood M.D. on 11/15/2018 at 8:15
[2018-11-15 06:56] LABS: Influenza A and B by PCR Rapid Negative (Negative)
[2018-11-15 07:26] VITALS: BP 102/64; PULSE 78; RESP 18; O2SAT 99
== END 2018-11-15 07:27 | disposition home or self-care (01) ==
PROVIDERS: Emergency Provider Emergency Medicine
DX: J06.9 Acute upper respiratory infection, unspecified (principal)
CPT/HCPCS: 71046; 87400; 99282; 99284

== ENCOUNTER → 2019-03-21 13:45 | Outpatient (CLI) | payer OTHER, SELFPAY ==
--- NOTE | 2019-04-01 16:08 | PM.PFT.1 ---
Pulmonary Function Test Referral & Results Date Patient Seen: 03/21/19 Requesting provider: Fozia Brenner Results: The spirometry demonstrates an FVC of 3.73 L which is 93% of predicted. The FEV1 was measured at 2.95 L which is 90% of predicted. The FEV1/FVC ratio was 79 which is 95% of predicted. Following the administration of bronchodilator there was in a% improvement in FEV1 and a 40% improvement in FEF 25-75%. Lung volumes show an SVC of 3.75 L which is 100% of predicted. The diffusing capacity was measured at 35.16 which is 130% Of predicted. The maximum voluntary ventilation was normal Interpretation: This study demonstrates very mild obstructive lung disease with an elevated DLCO suggesting asthma as a likely diagnosis. There is minimal evidence of benefit following bronchodilator administration, but some evidence of benefit is present. Clinical correlation suggested
== END ==
PROVIDERS: PCP Physician Assistant Medical; Visit Provider Physician Assistant Medical
DX: R06.00 Dyspnea, unspecified (principal)
CPT/HCPCS: 94060; 94726; 94729

== ENCOUNTER 2019-06-01 13:10 | Emergency (ER) | payer OTHER, SELFPAY ==
[2019-06-01 13:26] VITALS: BP 122/82; PULSE 70; RESP 14; TEMP 36.7; O2SAT 99; BMI 29.0
--- NOTE | 2019-06-01 18:00 | DI.CT.S_ITS ---
PROCEDURE: CT HEAD/BRAIN WO CON INDICATIONS: vision changes, headaches several months TECHNIQUE: Noncontrast 4.5 mm thick angled axial sections acquired from the foramen magnum to the vertex, with coronal and sagittal reformats. For radiation dose reduction, the following was used: automated exposure control, adjustment of mA and/or kV according to patient size. COMPARISON: None. FINDINGS: Image quality: Excellent. CSF spaces: Basal cisterns are patent. No extra-axial fluid collections. Ventricles are normal in size and shape. Brain: No midline shift. No intracranial masses or hemorrhage. Marks-white matter interface is normal. Skull and face: Calvarium and visualized facial bones are intact, without suspicious lesions. Sinuses: Visualized sinuses and mastoids are clear. IMPRESSION: No acute intracranial process. Dictated by: Anthony Simpson M.D. on 06/01/2019 at 19:12 Approved by: Anthony Simpson M.D. on 06/01/2019 at 19:13
--- NOTE | 2019-06-01 18:02 | ED_ITS ---
HPI - Headache General Chief Complaint: Headache Stated Complaint: headaches and vision changes Time Seen by Provider: 06/01/19 18:00 Source: patient Mode of arrival: Ambulatory Limitations: no limitations History of Present Illness HPI Narrative: This is a 38-year-old female comes in with complaint of headaches and vision changes. Patient states that they had sort of these different sort of changes to their vision which are sort of like flashing lights. The been going on for several months headaches are usually associated with it. Not always severe. Sometimes some nausea but no vomiting. Patient has not had trauma. Patient has seen an manager scientific was evaluated, they did not find any anatomical changes discuss possibly getting imaging if patient had worsening symptoms. She states that it has been worsening increasing in frequency as well as intensity she has been referred to another type of manager scientific but has not actually had this referral completed. She denies any loss of vision, denies any weakness, numbness, tingling, facial droop or difficulty with speech no vomiting. No chest pain or shortness of breath. No new issues with bowel movements or urination. Patient does take metformin for PCOS and Lexapro for the last several months. Denies any other major medical issues. Related Data Home Medications Medication Instructions Recorded Confirmed escitalopram oxalate 10 mg PO DAILY 06/01/19 06/01/19 Previous Rx's Medication Instructions Recorded blood sugar diagnostic #150 each 02/15/18 ibuprofen 600 mg PO Q6HR PRN #30 tab 07/14/18 Double Electric Breast Pump #1 ea 09/02/18 metformin 500 mg tablet,extended 500 mg PO BID #60 tab 11/03/18 release 24 hr albuterol sulfate 1 puff INHALATION Q4-6H PRN #8 gram 11/15/18 norethindrone 1.5 mg-ethinyl 1 tab PO DAILY #84 tab 12/15/18 estradiol 30 mcg(21)/iron 75 mg(7) tablet Allergies Allergy/AdvReac Type Severity Reaction Status Date / Time oxycodone [OXYCODONE] Allergy Severe violent Verified 06/01/19 13:31 vomiting shellfish derived Allergy Severe Swelling Verified 06/01/19 13:31 of Lip/Tongue/Throat azithromycin [AZITHROMYCIN] Allergy Intermediate stomach Verified 06/01/19 13:31 cramps/nausea latex Allergy Intermediate Hives Verified 06/01/19 13:31 Review of Systems Review of Systems ROS Unobtainable: All systems reviewed & are unremarkable except as noted in HPI and below PFSH Medical History Gestational diabetes (Acute) Surgical History H/O section (Resolved) Social History Smoking Status: Former smoker Social History Smoking Status: Former smoker Exam Narrative Exam Narrative: GEN: well nourished, well appearing female, alert and oriented x 3, patient appears to be in mild distress. HEENT: Atraumatic, pupils are equal round reactive to light, extraocular movements are intact, no nystagmus, nares are clear, TMs are clear with no fluid, there is no conjunctival pallor. Throat is clear without any exudates, erythema, tonsillar enlargement or uvular deviation, no facial droop. HEART: Regular rate and rhythm without murmur, clicks, rubs. LUNGS:Lungs clear to auscultation, no wheezes, rales, crackles, chest moves symmetrically ABD:bowel sounds normal, soft, non-tender, no guarding, rebound, rigidity, no masses noted, no hepatosplenomegaly :No CVA tenderness, [male/female exam] MSCL: Non-tender, 5/5 muscle strength, full range of motion, normal gait NEURO:CN 2-12 intact, sensation normal Initial Vital Signs Initial Vital Signs: Vital Signs Temperature 98.0 F 06/01/19 13:26 Pulse Rate 70 06/01/19 13:26 Respiratory Rate 14 06/01/19 13:26 Blood Pressure 122/82 06/01/19 13:26 Pulse Oximetry 99 06/01/19 13:26 Course Orders Ordered: ED Orders 06/01/19 18:00 CT head/brain wo con Stat Basic Metabolic Panel Stat Complete Blood Count AUTO DIFF Stat Discontinued Medications Ibuprofen (Advil) 800 mg PO NOW ONE Stop: 06/01/19 18:03 Last Admin: 06/01/19 18:16 Dose: 800 mg Documented by: ELSY Vital Signs Vital signs: Vital Signs - 8 hr 06/01/19 13:26 06/01/19 20:16 Temperature 98.0 F Pulse Rate 70 60 Respiratory Rate 14 14 Blood Pressure 122/82 110/75 Pulse Oximetry 99 100 MDM - Headache Lab Data Result diagrams: 06/01/19 18:00 06/01/19 18:00 Labs: Lab Results 06/01/19 06/01/19 Range/Units 18:00 18:00 WBC 6.1 (4.5-11.0) X10^3/uL RBC 4.47 (4.0-5.2) X10^6/uL Hgb 13.3 (12.0-16.0) g/dL Hct 39.5 (36-46) % MCV 88.3 (80-100) fL MCH 29.7 (26-34) PG MCHC 33.7 (30-36) % RDW 13.9 (11.6-14.8) % Plt Count 261 (150-400) X10^3/uL Neut % (Auto) 61.6 (50-75) % Lymph % (Auto) 24.9 L (25-40) % Banner % (Auto) 6.7 (3-14) % Eos % (Auto) 4.5 H (2-4) % Baso % (Auto) 2.3 H (0-2) % Neut # (Auto) 3800 (0396-0417) /uL Lymph # (Auto) 1500 (4710-0096) /uL Banner # (Auto) 400 (0-900) /uL Eos # (Auto) 300 (0-450) /uL Baso # (Auto) 100 (0-100) /uL Sodium 138 (137-145) mmol/L Potassium 3.8 (3.4-5.1) mmol/L Chloride 101 (98-107) mmol/L Carbon Dioxide 29 (22-32) mmol/L BUN 17 (7-17) mg/dL Creatinine 0.60 (0.52-1.04) mg/dL Estimated GFR > 60.0 (>60) mL/min BUN/Creatinine Ratio 28.3 H (6-22) Glucose 96 (70-100) mg/dL Calcium 9.3 (8.4-10.2) mg/dL Point of Care Testing Test Results Negative MDM Narrative Medical decision making narrative: Patient has had new vision changes, discussed doing imaging to rule out any organic causes that could be intracranial. Basic blood work including electrolytes, renal function and blood count. If negative patient's plan is to follow with with Ophthalmology and her next referral. Patient is not having any acute neurologic changes otherwise. We discussed potentially could be ocular migraines although not a totally traditional type pattern. Ct shows no acute intracranial process, CBC and BMP show no acute findings. poc preg is negative. Discussed with patient I would recommend follow-up with the 2nd manager scientific that she has been referred to. We discussed signs and symptoms to watch for reasons to return emergently. Discharge Plan Departure Patient Disposition: Home Clinical Impression: Changes in vision, Frequent headaches Discharge Date/Time: 06/01/19 20:16 Instructions: DI for Headache Activity Restrictions/Additional Instructions: Follow-up with Ophthalmology in your referral. The find helpful you may continue take ibuprofen up to 800 mg every 8 hours as needed. You may take Tylenol up to a 1000 mg as needed. Return to the emergency department for severe or sudden changes to headaches, loss of vision, double vision or other new or concerning vision changes, persistent vomiting, new chest, shortness of breath, new weakness, sensation changes, facial droop difficulty with speech or other new or concerning symptoms. Prescriptions: No Action (DME) blood sugar diagnostic [FreeStyle Lite Strips] strip See Dose Instructions .ROUTE .MEDSUPPLY Qty: 150 RF: 12 (DME) Double Electric Breast Pump Qty: 1 RF: 0 metformin [Glucophage XR] 500 mg tablet extended release 24 hr 500 mg PO BID Qty: 60 RF: 5 Loestrin Fe 1.5/30 (28-Day) 1.5 mg-30 mcg (21)/75 mg (7) tablet 1 tab PO DAILY Qty: 84 RF: 3 ibuprofen 600 mg Tablet 600 mg PO Q6HR PRN (Reason: As Needed For Fever/Mild Pain) Qty: 30 RF: 0 albuterol sulfate 90 mcg/actuation HFA aerosol inhaler 1 puff INHALATION Q4-6H PRN (Reason: shortness of breath or wheezing) Qty: 8 RF: 0 escitalopram oxalate 10 mg tablet 10 mg PO DAILY RF: 0 Referrals: Fozia Brenner [Primary Care Provider] -
[2019-06-01 18:13] LABS: Add Manual Diff / Slide Review NO; Basophils Absolute Auto 100 /uL (0-100); Basophils Percent Auto 2.3 % (0-2); Eosinophils Absolute Auto 300 /uL (0-450); Eosinophils Percent Auto 4.5 % (2-4); Hematocrit 39.5 % (36-46); Hemoglobin 13.3 g/dL (12.0-16.0); Lymphocytes Absolute Auto 1500 /uL (1100-4500); Lymphocytes Percent Auto 24.9 % (25-40); Mean Corpuscular HGB Conc 33.7 % (30-36); Mean Corpuscular Hemoglobin 29.7 PG (26-34); Mean Corpuscular Volume 88.3 fL (80-100); Monocytes Absolute Auto 400 /uL (0-900); Monocytes Percent Auto 6.7 % (3-14); Neutrophils Absolute Auto 3800 /uL (1500-7000); Neutrophils Percent Auto 61.6 % (50-75); Platelet Count 261 X10^3/uL (150-400); Red Blood Cell Count 4.47 X10^6/uL (4.0-5.2); Red Cell Distribution Width 13.9 % (11.6-14.8); White Blood Cell Count 6.1 X10^3/uL (4.5-11.0)
[2019-06-01] MEDS: IBUPROFEN 400 MG TABLET 800 MG PO (18:16)
[2019-06-01 18:30] LABS: BUN Creatinine Ratio 28.3 (6-22); Blood Urea Nitrogen 17 mg/dL (7-17); Calcium 9.3 mg/dL (8.4-10.2); Carbon Dioxide 29 mmol/L (22-32); Chloride 101 mmol/L (98-107); Estimated Glomerular Filt Rate > 60.0 mL/min (>60); Glucose 96 mg/dL (70-100); HEMOLYSIS < 15 (0-50); Potassium 3.8 mmol/L (3.4-5.1); Sodium 138 mmol/L (137-145)
--- NOTE | 2019-06-01 19:39 | PC.NURSE ---
Resting in recliner chair. playing on cell phone. lis crackers and water provided.
[2019-06-01 20:16] VITALS: BP 110/75; PULSE 60; RESP 14; O2SAT 100
== END 2019-06-01 20:16 | disposition home or self-care (01) ==
PROVIDERS: Emergency Provider Emergency Medicine; PCP Physician Assistant Medical
DX: H53.9 Unspecified visual disturbance (principal); R51 Headache; E11.9 Type 2 diabetes mellitus without complications
CPT/HCPCS: 36415; 70450; 80048; 81025; 85025; 99282; 99284

== ENCOUNTER → 2019-06-29 10:05 | Outpatient (CLI) | payer OTHER, SELFPAY ==
[2019-06-29 12:21] LABS: Hemoglobin A1C% w Est Avg Glu 4.9 % (4.0-6.0)
[2019-06-29 12:51] LABS: TSH w/ Reflex to FT4 0.96 uIU/mL (0.47-4.68)
== END ==
PROVIDERS: PCP Physician Assistant Medical; Visit Provider Specialist
DX: O24.439 Gestational diabetes mellitus in the puerperium, unspecified control (principal); E01.0 Iodine-deficiency related diffuse (endemic) goiter
CPT/HCPCS: 36415; 83036; 84443

== ENCOUNTER 2019-08-13 11:22 | Emergency (ER) | payer OTHER, SELFPAY ==
[2019-08-13 11:30] VITALS: BP 135/94; PULSE 76; RESP 18; TEMP 36.7; O2SAT 100; BMI 29.8
--- NOTE | 2019-08-13 11:40 | ED_ITS ---
HPI - Abdominal Pain <Bridget Wolfmer, [employer] - Last Filed: 08/13/19 21:00> General Chief Complaint: Abdominal Pain Stated Complaint: possible Appendicitis Time Seen by Provider: 08/13/19 11:31 Source: family Mode of arrival: Ambulatory Limitations: no limitations History of Present Illness HPI narrative: The patient is a 38-year-old female former smoker of PCOS who presents with a chief complaint of ?the walk-in. center might have appendicitis she states that she was seen at [facility] just prior to arrival to the emergency department, who referred her to the emergency department due to right lower quadrant and left upper quadrant pain. She states that the left upper quadrant pain has been going on for the past 2 weeks, she had a slight fever at home this morning so she went to the walk-in clinic at her ? forced her to get seen? she would not here without him.She complains of nausea, no vomiting, diarrhea that started over the past few days. She denies any abdominal surgeries. States that she had an IUD replaced 2 weeks ago. She denies any chest pain or shortness of breath. She states that the pain in her left upper quadrant radiates around to her back. She denies any dysuria urgency or frequency. Related Data Home Medications Medication Instructions Recorded Confirmed bupropion HCl 150 mg 24 hr tablet, 150 mg PO QAM 08/11/19 08/11/19 extended release Previous Rx's Medication Instructions Recorded blood sugar diagnostic #150 each 02/15/18 ibuprofen 600 mg PO Q6HR PRN #30 tab 07/14/18 albuterol sulfate 1 puff INHALATION Q4-6H PRN #8 gram 11/15/18 metformin 500 mg tablet,extended 500 mg PO BID #60 tab 06/10/19 release 24 hr ondansetron 4 mg PO Q6H PRN #20 tab 08/13/19 prednisone 50 mg PO DAILY #5 tab 08/13/19 Allergies Allergy/AdvReac Type Severity Reaction Status Date / Time oxycodone [OXYCODONE] Allergy Severe violent Verified 08/13/19 11:35 vomiting shellfish derived Allergy Severe Swelling Verified 08/13/19 11:35 of Lip/Tongue/Throat azithromycin [AZITHROMYCIN] Allergy Intermediate stomach Verified 08/13/19 11:35 cramps/nausea latex Allergy Intermediate Hives Verified 08/13/19 11:35 Review of Systems <CASANDRA Foreman - Last Filed: 08/13/19 21:00> Review of Systems Narrative: GENERAL: Denies chills, fatigue, malaise, fever, sweats. HEENT: Denies sinus pain, ear pain, sore throat, difficulty swallowing, dizziness. RESPIRATORY: Denies dyspnea, cough, wheezing, hemoptysis, sputum. CARDIOVASCULAR: Denies chest pain, palpitations, orthopnea, edema, GASTROINTESTINAL: See HPI : See HPI MUSCULOSKELETAL: denies weakness, joint pain, or bony pain SKIN: Denies rash, skin lesions, or other NEUROLOGIC: Denies weakness, headache, numbness, change in speech, confusion, seizures, incoordination. PSYCHIATRIC: No concerning psychosocial issues. 12 point review of systems is negative except for those stated above Patient History <CASANDRA Foreman - Last Filed: 08/13/19 21:00> Medical History Gestational diabetes (Acute) Surgical History H/O section (Resolved) Social History Smoking Status: Former smoker Smoking Status: Former smoker alcohol intake frequency: holidays/special occasions only Substance Use Type: does not use Exam <CASANDRA Foreman - Last Filed: 08/13/19 21:00> Narrative Exam Narrative: GENERAL: This is a well-nourished, well-developed patient, in no acute distress HEAD: Atraumatic. Normocephalic. No temporal or scalp tenderness. EYES: Pupils equal round and reactive. Extraocular motions intact. No scleral icterus. No injection or drainage. ENT: Nose without bleeding, purulent drainage or septal hematoma. Throat without erythema, tonsillar hypertrophy or exudate. Uvula midline. Airway patent. NECK: Trachea midline. No JVD or lymphadenopathy. Supple, nontender, no meningeal signs. CARDIOVASCULAR: Regular rate and rhythm without murmurs, gallops, or rubs. RESPIRATORY: Clear to auscultation. Breath sounds equal bilaterally. No wheezes, rales, or rhonchi. GASTROINTESTINAL: Abdomen soft, nondistended. No palpable masses. Active bowel sounds all 4 quadrants. Pain to palpation right lower quadrant as well as left upper quadrant. Positive pain over McBurney's point. No peritoneal signs. EXTREMITIES: No clubbing, cyanosis, or edema. No joint tenderness, effusion, or edema noted. BACK: Nontender without deformity or crepitance. No flank tenderness. NEURO: AOx3. SKIN: No rash or erythema. Initial Vital Signs Initial Vital Signs: Vital Signs Temperature 98.1 F 08/13/19 11:30 Pulse Rate 76 08/13/19 11:30 Respiratory Rate 18 08/13/19 11:30 Blood Pressure 135/94 H 08/13/19 11:30 Pulse Oximetry 100 08/13/19 11:30 <Sophia Carballo MD - Last Filed: 08/14/19 17:43> Initial Vital Signs Initial Vital Signs: Vital Signs Temperature 98.1 F 08/13/19 11:30 Pulse Rate 76 08/13/19 11:30 Respiratory Rate 18 08/13/19 11:30 Blood Pressure 135/94 H 08/13/19 11:30 Pulse Oximetry 100 08/13/19 11:30 Course <CASIE Foreman-AMINA - Last Filed: 08/13/19 21:00> Orders Ordered: ED Orders 08/13/19 12:15 Amylase Stat Complete Blood Count AUTO DIFF Stat Comprehensive Metabolic Panel Stat Lipase Stat Partial Thromboplastin Time Stat Prothrombin Time INR Stat 08/13/19 12:48 US abdomen limited Stat US pelvic complete Stat 08/13/19 14:20 CT abdomen pelvis w con Stat Vital Signs Vital signs: Vital Signs - 8 hr 08/13/19 13:22 08/13/19 14:42 Pulse Rate 71 66 Respiratory Rate 16 16 Blood Pressure [Right Arm] 116/66 116/60 Pulse Oximetry 100 100 <Sophia Carballo MD - Last Filed: 08/14/19 17:43> Orders Ordered: ED Orders 08/13/19 12:15 Amylase Stat Complete Blood Count AUTO DIFF Stat Comprehensive Metabolic Panel Stat Lipase Stat Partial Thromboplastin Time Stat Prothrombin Time INR Stat 08/13/19 12:48 US abdomen limited Stat US pelvic complete Stat 08/13/19 14:20 CT abdomen pelvis w con Stat Vital Signs Vital signs: Vital Signs - 8 hr 08/13/19 13:22 08/13/19 14:42 Pulse Rate 71 66 Respiratory Rate 16 16 Blood Pressure [Right Arm] 116/66 116/60 Pulse Oximetry 100 100 MDM - Abdominal Pain <CASIE Foreman- - Last Filed: 08/13/19 21:00> Lab Data Result diagrams: 08/13/19 12:15 08/13/19 12:15 Labs: Lab Results 08/13/19 08/13/19 08/13/19 Range/Units 11:45 11:45 12:15 WBC 6.7 (4.5-11.0) X10^3/uL RBC 4.43 (4.0-5.2) X10^6/uL Hgb 13.1 (12.0-16.0) g/dL Hct 38.2 (36-46) % MCV 86.1 (80-100) fL MCH 29.6 (26-34) PG MCHC 34.4 (30-36) % RDW 13.1 (11.6-14.8) % Plt Count 242 (150-400) X10^3/uL Neut % (Auto) 70.0 (50-75) % Lymph % (Auto) 15.5 L (25-40) % [place] % (Auto) 6.5 (3-14) % Eos % (Auto) 7.0 H (2-4) % Baso % (Auto) 1.0 (0-2) % Neut # (Auto) 4700 (5928-1848) /uL Lymph # (Auto) 1000 L (7904-6365) /uL [place] # (Auto) 400 (0-900) /uL Eos # (Auto) 500 H (0-450) /uL Baso # (Auto) 100 (0-100) /uL PT (10.1-12.7) SECONDS INR (0.9-1.3) APTT (26.4-36.2) SECONDS Sodium (137-145) mmol/L Potassium (3.4-5.1) mmol/L Chloride (98-107) mmol/L Carbon Dioxide (22-32) mmol/L BUN (7-17) mg/dL Creatinine (0.52-1.04) mg/dL Estimated GFR (>60) mL/min BUN/Creatinine Ratio (6-22) Glucose (70-100) mg/dL Calcium (8.4-10.2) mg/dL Total Bilirubin (0.2-1.3) mg/dL AST (14-36) IU/L ALT (<35) IU/L Alkaline Phosphatase (38-126) U/L Total Protein (6.3-8.2) g/dL Albumin (3.5-5.0) g/dL Globulin (1.7-4.1) g/dL Albumin/Globulin Ratio (1.0-2.8) Amylase (30-110) U/L Lipase (23-300) U/L Urine RBC None seen (0-5/HPF) Urine WBC None seen (0-5/HPF) Ur Squamous Epith Cells 0-1 /hpf (0-5/HPF) Urine Bacteria Occasional (0-1) (None) Ur Culture Indicated? Specimen cultured Stl C. cayetanensis PCR Cancelled Stool Rotavirus (PCR) Cancelled Stool Adenovirus (PCR) Cancelled Stool Astrovirus (PCR) Cancelled Stool Cryptosporidium PCR Cancelled Stl E.coli Shiga Tox PCR Cancelled St Sh/Enteroin Ecoli PCR Cancelled Stool E coli O157 PCR Cancelled Stl Enterotoxigenic E PCR Cancelled Stool EPEC (PCR) Cancelled Stl E. histolytica PCR Cancelled Stool Giardia Lamblia PCR Cancelled Stool Sapovirus (PCR) Cancelled Stl P. shigelloides PCR Cancelled St Y.enterocolitica PCR Cancelled Stool Vibrio (PCR) Cancelled Stl Vibrio cholerae PCR Cancelled Stl Enteroaggr Ecoli PCR Cancelled Stl Norovirus GI/GII PCR Cancelled Campylobacter (PCR) Cancelled C. difficile Tox (PCR) Cancelled Salmonella (PCR) Cancelled 08/13/19 08/13/19 Range/Units 12:15 12:15 WBC (4.5-11.0) X10^3/uL RBC (4.0-5.2) X10^6/uL Hgb (12.0-16.0) g/dL Hct (36-46) % MCV (80-100) fL MCH (26-34) PG MCHC (30-36) % RDW (11.6-14.8) % Plt Count (150-400) X10^3/uL Neut % (Auto) (50-75) % Lymph % (Auto) (25-40) % [place] % (Auto) (3-14) % Eos % (Auto) (2-4) % Baso % (Auto) (0-2) % Neut # (Auto) (9266-2132) /uL Lymph # (Auto) (2575-0703) /uL [place] # (Auto) (0-900) /uL Eos # (Auto) (0-450) /uL Baso # (Auto) (0-100) /uL PT 10.6 (10.1-12.7) SECONDS INR 0.9 (0.9-1.3) APTT 31 (26.4-36.2) SECONDS Sodium 141 (137-145) mmol/L Potassium 3.9 (3.4-5.1) mmol/L Chloride 105 (98-107) mmol/L Carbon Dioxide 28 (22-32) mmol/L BUN 14 (7-17) mg/dL Creatinine 0.70 (0.52-1.04) mg/dL Estimated GFR > 60.0 (>60) mL/min BUN/Creatinine Ratio 20.0 (6-22) Glucose 75 (70-100) mg/dL Calcium 9.2 (8.4-10.2) mg/dL Total Bilirubin 0.4 (0.2-1.3) mg/dL AST 25 (14-36) IU/L ALT 15 (<35) IU/L Alkaline Phosphatase 62 (38-126) U/L Total Protein 6.6 (6.3-8.2) g/dL Albumin 4.1 (3.5-5.0) g/dL Globulin 2.5 (1.7-4.1) g/dL Albumin/Globulin Ratio 1.6 (1.0-2.8) Amylase 82 (30-110) U/L Lipase 114 (23-300) U/L Urine RBC (0-5/HPF) Urine WBC (0-5/HPF) Ur Squamous Epith Cells (0-5/HPF) Urine Bacteria (None) Ur Culture Indicated? Stl C. cayetanensis PCR Stool Rotavirus (PCR) Stool Adenovirus (PCR) Stool Astrovirus (PCR) Stool Cryptosporidium PCR Stl E.coli Shiga Tox PCR St Sh/Enteroin Ecoli PCR Stool E coli O157 PCR Stl Enterotoxigenic E PCR Stool EPEC (PCR) Stl E. histolytica PCR Stool Giardia Lamblia PCR Stool Sapovirus (PCR) Stl P. shigelloides PCR St Y.enterocolitica PCR Stool Vibrio (PCR) Stl Vibrio cholerae PCR Stl Enteroaggr Ecoli PCR Stl Norovirus GI/GII PCR Campylobacter (PCR) C. difficile Tox (PCR) Salmonella (PCR) Point of care testing: Point of Care Testing Test Results Negative Urine Dip Bedside Urine Glucose Negative Bedside Urine Bilirubin - Negative Bedside Urine Ketone - Negative Urine Specific [place] 1.010 Bedside Urine Occult Blood +/- Bedside Urine pH 6.5 Bedside Urine Protein - Negative Bedside Urine Urobilinogen - Negative Bedside Urine Nitrite - Negative Bedside Urine Leukocytes +/- [address] scan - abdomen: Radiologist's impression: [address] [address] [address] Scan Report Signed Patient: Amita Vargas KMR#: [id number] : 1980Acct:[id number] Age/Sex: 38 / FDate of Service: 08/13/19 Loc: ED Accession Number: [id number] Procedure: CT abdomen pelvis w con Ordering Provider: Bridget ChurchP- PROCEDURE: CT ABDOMEN PELVIS W CON INDICATIONS: luq, rlq pain TECHNIQUE: After the administration of intravenous contrast, 5 mm thick sections acquired from the diaphragm to the symphysis. 5 mm coronal and sagittal reformats were acquired. For radiation dose reduction, the following was used: automated exposure control, adjustment of mA and/or kV according to patient size. COMPARISON: [facility], PELVIC COMPLETE, 08/13/2019, 13:44. [facility], ABDOMEN LIMITED, 08/13/2019, 13:38. FINDINGS: Image quality: Excellent. ABDOMEN: Lung bases: Lung bases are clear. Heart size is normal. Solid organs: The there is a small hepatic cyst. Gallbladder appears within normal limits without calcified gallstones. Biliary system is non dilated. Pancreas enhances normally. Spleen is normal in size and enhancement. No adrenal nodules. Kidn eys demonstrate no hydronephrosis. There is a small left renal cyst. Peritoneum and bowel: There is mild gastric wall thickening although evaluation limited by incomplete distention. Small bowel loops demonstrate normal wall thickness and caliber. The appendix is normal in appearance. There is mild segmental wall thickening of the colon at the splenic flexure and involving the descending colon. There is also mild segmental thickening in the rectosigmoid colon distally. No free fluid or air. Nodes and vessels: No retroperitoneal or mesenteric adenopathy by size criteria. Aorta and inferior vena cava are normal in size. Miscellaneous: No ventral hernias. There is mild subcutaneous fat stranding within the ventral abdominal wall of indeterminate clinical significance. PELVIS: Genitourinary: IUD is demonstrated in appropriate position extending into the fundal endometrium. Bladder wall thickness is normal. There are small bilateral ovarian cysts likely representing follicular cysts. Miscellaneous: No inguinal hernias or adenopathy. Bones: No suspicious bony lesions. No vertebral body compression fractures. IMPRESSION: 1. Mild segmental wall thickening of the distal colon beginning at the splenic flexure suggestive of a mild infectious or inflammatory colitis. 2. Suggestion of mild gastric wall thickening although this may reflect incomplete distention. 3. IUD appears in appropriate position within the uterus. Dictated by: Ashutosh Dallas M.D. on 08/13/2019 at 13:48 Approved by: Ashutosh Dallas M.D. on 08/13/2019 at 13:55 pelvic us: Radiologist's impression: Amita Vargas 38 F 1980 [place] [address] Ultrasound Report Signed Patient: Amita Vargas KMR#: [id number] : 1980Acct:[id number] Age/Sex: 38 / FDate of Service: 08/13/19 Loc: ED Accession Number: [id number] Procedure: US pelvic complete Ordering Provider: Bridget ChurchBC PROCEDURE: US PELVIC COMPLETE INDICATIONS: rlq pain TECHNIQUE: Real-time scanning was performed of the pelvic organs, with image documentation. Additional endovaginal scanning was necessary due to incomplete visualization of the adnexal and endometrial structures by transabdominal scanning. COMPARISON: [facility], , US PELVIC COMPLETE, 08/27/2018, 8:25. FINDINGS: Transabdominal scanning: Limited scanning through the kidneys shows no hydronephrosis. There is a small amount of free fluid in the pelvis which appears within physiologic limits. Endovaginal scanning: Uterus: Uterus is normal in size at 9.6 x 3.0 x 6.1 cm. The endometrium measures 1.0 cm in combined thickness. There is a section scar within the lower uterine segment. There is an IUD within the endometrium. This appears to partially extend into the section scar. Ovaries: The right ovary measures 3.6 x 1.9 x 2.2 cm and the left ovary measures 3.8 x 2.0 x 2.4 cm. There are bilateral ovarian follicles. There is a simple cyst in the right ovary measuring up to 2.0 cm. In the left ovary, there is also a simple cyst measuring up to 2.4 cm. Findings likely represent follicular cysts. IMPRESSION: 1. IUD demonstrated within the endometrium with apparent extension to the base of a section scar. Dictated by: Ashutosh Dallas M.D. on 08/13/2019 at 13:41 Approved by: Ashutosh Dallas M.D. on 08/13/2019 at 13:47 US - abdomen: Radiologist's impression: [place] [address] Ultrasound Report Signed Patient: Amita Vargas KMR#: [id number] : 1980Acct:[id number] Age/Sex: 38 / FDate of Service: 08/13/19 Loc: ED Accession Number: [id number] Procedure: US abdomen limited Ordering Provider: Bridget Church PROCEDURE: US ABDOMEN LIMITED INDICATIONS: LUQ pain TECHNIQUE: Real-time focused scanning was performed of the left upper quadrant, with image documentation. COMPARISON: None. FINDINGS: Limited evaluation of the left upper quadrant performed. The spleen is normal in size and appears unremarkable sonographically. Left kidney demonstrates no hydronephrosis. No discrete mass lesion demonstrated in the abdominal wall. IMPRESSION: 1. No acute sonographic abnormality identified in the left upper quadrant. Dictated by: Ashutosh Dallas M.D. on 08/13/2019 at 13:30 Approved by: Ashutosh Dallas M.D. on 08/13/2019 at 13:32 [facility] Narrative Medical decision making narrative: The patient is a 38-year-old female who presents for the walk-in clinic for chief complaint of possible appendicitis. She has had left upper quadrant pain ongoing for the past several weeks, had right lower quadrant pain on exam today. The she was referred to the ER for imaging and lab work. She has no leukocytosis on her labs, which are grossly normal. Her urine no nitrates, RBCs, WBC and she denies any dysuria or symptoms. Urine cultures pending at this time. She does have right lower quadrant pain to palpation, and pelvic ultrasound shows bilateral cyst. She has no appendicitis on CT, so I believe her right lower quadrant pain is caused by her cysts. The patient also has had a left upper quadrant pain for several weeks, CT rules out small-bowel obstruction, pancreatitis, but is concerning for colitis. Given that she has no fevers, no leukocytosis we elected to treat this as inflammatory rather than infectious. I placed her on prednisone. I discussed at length following up with primary care provider, simple diet etceter a. Discussed monitoring for signs of infection such as fevers etc. discussed strict return precautions the emergency department including abdominal pain and fever. Patient has no questions or concerns upon discharge and states understanding of return precautions as well as follow-up care. <Sophia Carballo MD - Last Filed: 08/14/19 17:43> Lab Data Labs: Lab Results 08/13/19 08/13/19 08/13/19 Range/Units 11:45 11:45 12:15 WBC 6.7 (4.5-11.0) X10^3/uL RBC 4.43 (4.0-5.2) X10^6/uL Hgb 13.1 (12.0-16.0) g/dL Hct 38.2 (36-46) % MCV 86.1 (80-100) fL MCH 29.6 (26-34) PG MCHC 34.4 (30-36) % RDW 13.1 (11.6-14.8) % Plt Count 242 (150-400) X10^3/uL Neut % (Auto) 70.0 (50-75) % Lymph % (Auto) 15.5 L (25-40) % [place] % (Auto) 6.5 (3-14) % Eos % (Auto) 7.0 H (2-4) % Baso % (Auto) 1.0 (0-2) % Neut # (Auto) 4700 (6278-9745) /uL Lymph # (Auto) 1000 L (3280-5482) /uL [place] # (Auto) 400 (0-900) /uL Eos # (Auto) 500 H (0-450) /uL Baso # (Auto) 100 (0-100) /uL PT (10.1-12.7) SECONDS INR (0.9-1.3) APTT (26.4-36.2) SECONDS Sodium (137-145) mmol/L Potassium (3.4-5.1) mmol/L Chloride (98-107) mmol/L Carbon Dioxide (22-32) mmol/L BUN (7-17) mg/dL Creatinine (0.52-1.04) mg/dL Estimated GFR (>60) mL/min BUN/Creatinine Ratio (6-22) Glucose (70-100) mg/dL Calcium (8.4-10.2) mg/dL Total Bilirubin (0.2-1.3) mg/dL AST (14-36) IU/L ALT (<35) IU/L Alkaline Phosphatase (38-126) U/L Total Protein (6.3-8.2) g/dL Albumin (3.5-5.0) g/dL Globulin (1.7-4.1) g/dL Albumin/Globulin Ratio (1.0-2.8) Amylase (30-110) U/L Lipase (23-300) U/L Urine RBC None seen (0-5/HPF) Urine WBC None seen (0-5/HPF) Ur Squamous Epith Cells 0-1 /hpf (0-5/HPF) Urine Bacteria Occasional (0-1) (None) Ur Culture Indicated? Specimen cultured Stl C. cayetanensis PCR Cancelled Stool Rotavirus (PCR) Cancelled Stool Adenovirus (PCR) Cancelled Stool Astrovirus (PCR) Cancelled Stool Cryptosporidium PCR Cancelled Stl E.coli Shiga Tox PCR Cancelled St Sh/Enteroin Ecoli PCR Cancelled Stool E coli O157 PCR Cancelled Stl Enterotoxigenic E PCR Cancelled Stool EPEC (PCR) Cancelled Stl E. histolytica PCR Cancelled Stool Giardia Lamblia PCR Cancelled Stool Sapovirus (PCR) Cancelled Stl P. shigelloides PCR Cancelled St Y.enterocolitica PCR Cancelled Stool Vibrio (PCR) Cancelled Stl Vibrio cholerae PCR Cancelled Stl Enteroaggr Ecoli PCR Cancelled Stl Norovirus GI/GII PCR Cancelled Campylobacter (PCR) Cancelled C. difficile Tox (PCR) Cancelled Salmonella (PCR) Cancelled 08/13/19 08/13/19 Range/Units 12:15 12:15 WBC (4.5-11.0) X10^3/uL RBC (4.0-5.2) X10^6/uL Hgb (12.0-16.0) g/dL Hct (36-46) % MCV (80-100) fL MCH (26-34) PG MCHC (30-36) % RDW (11.6-14.8) % Plt Count (150-400) X10^3/uL Neut % (Auto) (50-75) % Lymph % (Auto) (25-40) % [place] % (Auto) (3-14) % Eos % (Auto) (2-4) % Baso % (Auto) (0-2) % Neut # (Auto) (1564-9454) /uL Lymph # (Auto) (4681-0785) /uL [place] # (Auto) (0-900) /uL Eos # (Auto) (0-450) /uL Baso # (Auto) (0-100) /uL PT 10.6 (10.1-12.7) SECONDS INR 0.9 (0.9-1.3) APTT 31 (26.4-36.2) SECONDS Sodium 141 (137-145) mmol/L Potassium 3.9 (3.4-5.1) mmol/L Chloride 105 (98-107) mmol/L Carbon Dioxide 28 (22-32) mmol/L BUN 14 (7-17) mg/dL Creatinine 0.70 (0.52-1.04) mg/dL Estimated GFR > 60.0 (>60) mL/min BUN/Creatinine Ratio 20.0 (6-22) Glucose 75 (70-100) mg/dL Calcium 9.2 (8.4-10.2) mg/dL Total Bilirubin 0.4 (0.2-1.3) mg/dL AST 25 (14-36) IU/L ALT 15 (<35) IU/L Alkaline Phosphatase 62 (38-126) U/L Total Protein 6.6 (6.3-8.2) g/dL Albumin 4.1 (3.5-5.0) g/dL Globulin 2.5 (1.7-4.1) g/dL Albumin/Globulin Ratio 1.6 (1.0-2.8) Amylase 82 (30-110) U/L Lipase 114 (23-300) U/L Urine RBC (0-5/HPF) Urine WBC (0-5/HPF) Ur Squamous Epith Cells (0-5/HPF) Urine Bacteria (None) Ur Culture Indicated? Stl C. cayetanensis PCR Stool Rotavirus (PCR) Stool Adenovirus (PCR) Stool Astrovirus (PCR) Stool Cryptosporidium PCR Stl E.coli Shiga Tox PCR St Sh/Enteroin Ecoli PCR Stool E coli O157 PCR Stl Enterotoxigenic E PCR Stool EPEC (PCR) Stl E. histolytica PCR Stool Giardia Lamblia PCR Stool Sapovirus (PCR) Stl P. shigelloides PCR St Y.enterocolitica PCR Stool Vibrio (PCR) Stl Vibrio cholerae PCR Stl Enteroaggr Ecoli PCR Stl Norovirus GI/GII PCR Campylobacter (PCR) C. difficile Tox (PCR) Salmonella (PCR) Point of care testing: Point of Care Testing Test Results Negative Urine Dip Bedside Urine Glucose Negative Bedside Urine Bilirubin - Negative Bedside Urine Ketone - Negative Urine Specific [place] 1.010 Bedside Urine Occult Blood +/- Bedside Urine pH 6.5 Bedside Urine Protein - Negative Bedside Urine Urobilinogen - Negative Bedside Urine Nitrite - Negative Bedside Urine Leukocytes +/- 15 Esterase Discharge Plan Departure Patient Disposition: Home Clinical Impression: Colitis Abdominal pain Qualifiers: Abdominal location: left upper quadrant Qualified Code(s): R10.12 - Left upper quadrant pain Ovarian cyst Qualifiers: Laterality: bilateral Qualified Code(s): N83.201 - Unspecified ovarian cyst, right side Discharge Date/Time: 08/13/19 16:07 Instructions: DI for Ovarian Cyst, DI for Abdominal Pain-Adult, DI for Colitis Activity Restrictions/Additional Instructions: Your imaging is concerning for bilateral ovarian cysts, as well as colitis which is infectious versus inflammatory As discussed given that you do not have any fevers, have no white blood cell count elevation may have elected to treat you for inflammatory colitis. I have sent prednisone and Zofran to [facility] in [place] As discussed, please eat a simple diet. Avoid spicy, deep fried fatty, acidic foods. Please cancel your pizza plans for tonight. Please come back to the emergency department for any acute concerns such as inability keep down fluids Please follow-up with primary care provider for the next few days. Prescriptions: New ondansetron 4 mg tablet,disintegrating 4 mg PO Q6H PRN (Reason: nausea and vomiting) Qty: 20 RF: 0 prednisone 50 mg tablet 50 mg PO DAILY Qty: 5 RF: 0 No Action (DME) blood sugar diagnostic [FreeStyle Lite Strips] strip See Dose Instructions .ROUTE .MEDSUPPLY Qty: 150 RF: 12 metformin [Glucophage XR] 500 mg tablet extended release 24 hr 500 mg PO BID Qty: 60 RF: 5 bupropion HCl [Wellbutrin XL] 150 mg tablet extended release 24 hr 150 mg PO QAM RF: 0 ibuprofen 600 mg Tablet 600 mg PO Q6HR PRN (Reason: As Needed For Fever/Mild Pain) Qty: 30 RF: 0 albuterol sulfate 90 mcg/actuation HFA aerosol inhaler 1 puff INHALATION Q4-6H PRN (Reason: shortness of breath or wheezing) Qty: 8 RF: 0 Referrals: Fozia Brenner [Primary Care Provider] - Stand Alone Forms: Work Release Note
[2019-08-13 12:13] LABS: RBC Urine None Seen (0-5/HPF); WBC Urine None Seen (0-5/HPF)
[2019-08-13 12:26] LABS: Add Manual Diff / Slide Review NO; Basophils Absolute Auto 100 /uL (0-100); Eosinophils Absolute Auto 500 /uL (0-450); Hematocrit 38.2 % (36-46); Hemoglobin 13.1 g/dL (12.0-16.0); Lymphocytes Absolute Auto 1000 /uL (1100-4500); Lymphocytes Percent Auto 15.5 % (25-40); Mean Corpuscular HGB Conc 34.4 % (30-36); Mean Corpuscular Hemoglobin 29.6 PG (26-34); Mean Corpuscular Volume 86.1 fL (80-100); Monocytes Absolute Auto 400 /uL (0-900); Monocytes Percent Auto 6.5 % (3-14); Neutrophils Absolute Auto 4700 /uL (1500-7000); Platelet Count 242 X10^3/uL (150-400); Red Blood Cell Count 4.43 X10^6/uL (4.0-5.2); Red Cell Distribution Width 13.1 % (11.6-14.8); White Blood Cell Count 6.7 X10^3/uL (4.5-11.0)
[2019-08-13 12:35] LABS: Bacteria Urine Occasional (0-1); Culture Indicated Urine Specimen Cultured; Squamous Epithelial Cell Urine 0-1 /HPF (0-5/HPF)
[2019-08-13 12:36] LABS: INR 0.9 (0.9-1.3); Prothrombin Time 10.6 SECONDS (10.1-12.7)
[2019-08-13 12:39] LABS: Alanine Aminotransferase 15 IU/L (<35); Albumin 4.1 g/dL (3.5-5.0); Albumin Globulin Ratio 1.6 (1.0-2.8); Alkaline Phosphatase 62 U/L (38-126); Amylase 82 U/L (30-110); Aspartate Aminotransferase 25 IU/L (14-36); Bilirubin Total 0.4 mg/dL (0.2-1.3); Blood Urea Nitrogen 14 mg/dL (7-17); Calcium 9.2 mg/dL (8.4-10.2); Carbon Dioxide 28 mmol/L (22-32); Chloride 105 mmol/L (98-107); Estimated Glomerular Filt Rate > 60.0 mL/min (>60); Globulin 2.5 g/dL (1.7-4.1); Glucose 75 mg/dL (70-100); HEMOLYSIS 19 (0-50); Lipase 114 U/L (23-300); PTT Partial Thromboplastin Tim 31 SECONDS (26.4-36.2); Potassium 3.9 mmol/L (3.4-5.1); Sodium 141 mmol/L (137-145); Total Protein 6.6 g/dL (6.3-8.2)
[2019-08-13 12:40] VITALS: BP 113/66; PULSE 75; RESP 18; O2SAT 100
--- NOTE | 2019-08-13 12:48 | DI.US.S_ITS ---
PROCEDURE: US PELVIC COMPLETE INDICATIONS: rlq pain TECHNIQUE: Real-time scanning was performed of the pelvic organs, with image documentation. Additional endovaginal scanning was necessary due to incomplete visualization of the adnexal and endometrial structures by transabdominal scanning. COMPARISON: [facility], US, US PELVIC COMPLETE, 08/27/2018, 8:25. FINDINGS: Transabdominal scanning: Limited scanning through the kidneys shows no hydronephrosis. There is a small amount of free fluid in the pelvis which appears within physiologic limits. Endovaginal scanning: Uterus: Uterus is normal in size at 9.6 x 3.0 x 6.1 cm. The endometrium measures 1.0 cm in combined thickness. There is a section scar within the lower uterine segment. There is an IUD within the endometrium. This appears to partially extend into the section scar. Ovaries: The right ovary measures 3.6 x 1.9 x 2.2 cm and the left ovary measures 3.8 x 2.0 x 2.4 cm. There are bilateral ovarian follicles. There is a simple cyst in the right ovary measuring up to 2.0 cm. In the left ovary, there is also a simple cyst measuring up to 2.4 cm. Findings likely represent follicular cysts. IMPRESSION: 1. IUD demonstrated within the endometrium with apparent extension to the base of a section scar. Dictated by: Ashutosh Dallas M.D. on 08/13/2019 at 13:41 Approved by: Ashutosh Dallas M.D. on 08/13/2019 at 13:47
--- NOTE | 2019-08-13 12:48 | DI.US.S_ITS ---
PROCEDURE: US ABDOMEN LIMITED INDICATIONS: LUQ pain TECHNIQUE: Real-time focused scanning was performed of the left upper quadrant, with image documentation. COMPARISON: None. FINDINGS: Limited evaluation of the left upper quadrant performed. The spleen is normal in size and appears unremarkable sonographically. Left kidney demonstrates no hydronephrosis. No discrete mass lesion demonstrated in the abdominal wall. IMPRESSION: 1. No acute sonographic abnormality identified in the left upper quadrant. Dictated by: Ashutosh Dallas M.D. on 08/13/2019 at 13:30 Approved by: Ashutosh Dallas M.D. on 08/13/2019 at 13:32
[2019-08-13 13:22] VITALS: BP 116/66; PULSE 71; RESP 16; O2SAT 100
--- NOTE | 2019-08-13 14:20 | DI.CT.S_ITS ---
PROCEDURE: CT ABDOMEN PELVIS W CON INDICATIONS: luq, rlq pain TECHNIQUE: After the administration of intravenous contrast, 5 mm thick sections acquired from the diaphragm to the symphysis. 5 mm coronal and sagittal reformats were acquired. For radiation dose reduction, the following was used: automated exposure control, adjustment of mA and/or kV according to patient size. COMPARISON: [facility], , PELVIC COMPLETE, 08/13/2019, 13:44. [facility], , US ABDOMEN LIMITED, 08/13/2019, 13:38. FINDINGS: Image quality: Excellent. ABDOMEN: Lung bases: Lung bases are clear. Heart size is normal. Solid organs: The there is a small hepatic cyst. Gallbladder appears within normal limits without calcified gallstones. Biliary system is non dilated. Pancreas enhances normally. Spleen is normal in size and enhancement. No adrenal nodules. Kidneys demonstrate no hydronephrosis. There is a small left renal cyst. Peritoneum and bowel: There is mild gastric wall thickening although evaluation limited by incomplete distention. Small bowel loops demonstrate normal wall thickness and caliber. The appendix is normal in appearance. There is mild segmental wall thickening of the colon at the splenic flexure and involving the descending colon. There is also mild segmental thickening in the rectosigmoid colon distally. No free fluid or air. Nodes and vessels: No retroperitoneal or mesenteric adenopathy by size criteria. Aorta and inferior vena cava are normal in size. Miscellaneous: No ventral hernias. There is mild subcutaneous fat stranding within the ventral abdominal wall of indeterminate clinical significance. PELVIS: Genitourinary: IUD is demonstrated in appropriate position extending into the fundal endometrium. Bladder wall thickness is normal. There are small bilateral ovarian cysts likely representing follicular cysts. Miscellaneous: No inguinal hernias or adenopathy. Bones: No suspicious bony lesions. No vertebral body compression fractures. IMPRESSION: 1. Mild segmental wall thickening of the distal colon beginning at the splenic flexure suggestive of a mild infectious or inflammatory colitis. 2. Suggestion of mild gastric wall thickening although this may reflect incomplete distention. 3. IUD appears in appropriate position within the uterus. Dictated by: Ashutosh Dallas M.D. on 08/13/2019 at 13:48 Approved by: Ashutosh Dallas M.D. on 08/13/2019 at 13:55
[2019-08-13 14:42] VITALS: BP 116/60; PULSE 66; RESP 16; O2SAT 100
== END 2019-08-13 16:07 | disposition home or self-care (01) ==
PROVIDERS: Emergency Provider Nurse Practitioner Family; PCP Physician Assistant Medical
DX: K52.9 Noninfective gastroenteritis and colitis, unspecified (principal); R10.12 Left upper quadrant pain; N83.201 Unspecified ovarian cyst, right side
CPT/HCPCS: 36415; 74177; 76705; 76830; 76856; 80053; 81003; 81015; 81025; 82150; 83690; 85025; 85610; 85730; 87086; 99284; Q9967